=== PATIENT | male | born 1955 | race Caucasian/White ===

== ENCOUNTER 2020-06-22 18:57 | Emergency (ER) | payer MEDICARE, MEDICAID ==
[~2020-06-22] VITALS: Ht 172.7 cm; Wt 75.0 kg
[2020-06-22 20:18] VITALS: BP 142/81
== END 2020-06-22 20:20 | disposition home or self-care (01) ==
LOC: ER 18:57
DX: S02.2XXA Fracture of nasal bones, initial encounter for closed fracture (principal); S00.83XA Contusion of other part of head, initial encounter; S09.90XA Unspecified injury of head, initial encounter; M79.644 Pain in right finger(s); I10 Essential (primary) hypertension; F12.90 Cannabis use, unspecified, uncomplicated; F15.90 Other stimulant use, unspecified, uncomplicated; Z86.73 Personal history of transient ischemic attack (TIA), and cerebral infarction without residual deficits; Z86.19 Personal history of other infectious and parasitic diseases; Z98.890 Other specified postprocedural states; W18.39XA Other fall on same level, initial encounter; Y93.89 Activity, other specified; Y92.89 Other specified places as the place of occurrence of the external cause; Y99.8 Other external cause status
CPT/HCPCS: 70450; 70486; 72125; 99285

== ENCOUNTER 2023-03-13 11:46 | Emergency (ER) | payer OTHER, MEDICAID ==
[~2023-03-13] VITALS: Ht 172.7 cm; Wt 70.0 kg
[2023-03-13 11:51] VITALS: BP 126/74
[2023-03-13] MEDS ORDERED: bacitracin 15gm ointment TP ONE (12:05)
[2023-03-13] MEDS ORDERED: TETanus/Pertussis (Acell)/Diphther VAC/PF (Tdap-Adult) 0.5ml syringe IMVAC ONE (12:05)
[2023-03-13] MEDS ORDERED: normal saline 1000ML IV soln IVB ONE (12:05)
[2023-03-13] MEDS ORDERED: HYDROcodone/acetaminophen 5mg/325mg tablet PO ONE (12:05)
--- NOTE | 2023-03-13 12:31 | NUR ---
Patient refusing blood draw and IV at this time. notified PA
[2023-03-13] MEDS ORDERED: LIDOCAINE 5% OINTMENT 35GM TP STA (12:35)
[2023-03-13] MEDS ORDERED: ibuprofen tablet 400 MG TABLET PO ONE (12:40)
[2023-03-13] MEDS ORDERED: zinc oxide ointment 30gm tube TP STA (12:45)
--- NOTE | 2023-03-13 12:56 | NUR ---
Patient placed with viscous lidocaine to back. will wait 15 minutes and debride wound
== END 2023-03-13 13:46 | disposition home or self-care (01) ==
LOC: ER 11:47
DX: L55.9 Sunburn, unspecified (principal); F15.10 Other stimulant abuse, uncomplicated; F17.200 Nicotine dependence, unspecified, uncomplicated; F12.10 Cannabis abuse, uncomplicated; I10 Essential (primary) hypertension; X32.XXXA Exposure to sunlight, initial encounter; Y92.89 Other specified places as the place of occurrence of the external cause; Y93.89 Activity, other specified; Y99.8 Other external cause status
CPT/HCPCS: 90471; 90715; 99284; A6258; A6446; A6449

== ENCOUNTER 2023-03-16 15:38 | Emergency (ER) | payer OTHER, MEDICAID ==
[~2023-03-16] VITALS: Ht 172.7 cm; Wt 72.2 kg
[2023-03-16 15:58] VITALS: BP 137/78
[2023-03-16] MEDS ORDERED: bacitracin 15gm ointment TP ONE (16:25)
[2023-03-16] MEDS ORDERED: ketorolac trometh. 30mg/ml inj. IM ONE (16:25)
[2023-03-16] MEDS ORDERED: MUPI15CR12 TOP (16:36)
[2023-03-16] MEDS ORDERED: LIDO30CR TOP (16:36)
== END 2023-03-16 16:49 | disposition home or self-care (01) ==
LOC: ER 15:38
DX: T22.252A Burn of second degree of left shoulder, initial encounter (principal); T22.251A Burn of second degree of right shoulder, initial encounter; T21.23XA Burn of second degree of upper back, initial encounter; L55.9 Sunburn, unspecified; I10 Essential (primary) hypertension; F15.20 Other stimulant dependence, uncomplicated; F12.90 Cannabis use, unspecified, uncomplicated; X08.8XXA Exposure to other specified smoke, fire and flames, initial encounter; Y93.89 Activity, other specified; Y92.89 Other specified places as the place of occurrence of the external cause; Y99.8 Other external cause status
CPT/HCPCS: 16000; 96372; 99283; J1885